=== PATIENT | male | born 1950 | race Caucasian/White ===

== ENCOUNTER → 2017-06-28 | Outpatient (CLI) | payer OTHER, BC | LOC: LAB 11:08 | PROVIDERS: ATTEND Internal Medicine Gastroenterology | DX: K64.0 First degree hemorrhoids (principal) | CPT/HCPCS: 82270 ==

== ENCOUNTER 2024-11-08 09:26 | Observation (INO) ==
--- NOTE | 2024-11-08 09:36 | EKG ---
Test Reason : possible stroke Blood Pressure : */* mmHG Vent. Rate : 79 BPM Atrial Rate : 79 BPM P-R Int : 212 ms QRS Dur : 150 ms QT Int : 390 ms P-R-T Axes : 58 -20 4 degrees QTc Int : 447 ms Sinus rhythm with 1st degree AV block Left bundle branch block Abnormal ECG No previous ECGs available Confirmed by Major Mcintyre MD ([id number]) on 11/08/2024 5:20:31 PM Referred By: Confirmed By: Major Mcintyre MD
--- NOTE | 2024-11-08 09:42 | DR.WEAKNES ---
HPI Time Seen Time Seen by Provider: 11/08/24 09:39 Complaints Chief Complaint Doctors Comments: This evaluate him patient awakened about 8 AM this morning with some slurred speech according to his son he stated that he called his father and he seemed to be slurring his speech so they went over it and they brought him to the ER for further evaluation. Stroke alert protocol was instituted upon the patient's arrival in the ER. Timing Symptom Onset: Known Context Stroke Symptoms: Slurring PMH PMH Past Surgical History: Yes Travel Risk Coronavirus risk:travel/contact w/high risk person: No Has patient experienced Coronavirus symptoms: No ROS Review of Systems Constitutional: Other (slurred speech) Eyes: No Symptoms Reported ENTM: No Symptoms Reported Respiratoy: No Symptoms Reported Cardiovascular: No Symptoms Reported Gastrointestinal/Abdominal: No Symptoms Reported Genitourinary: No Symptoms Reported Neurological: Speech Problem Musculoskeletal: No Symptoms Reported Integumentary: No Symptoms Reported Hematologic/Lymphatic: No Symptoms Reported Endocrine: No Symptoms Reported Psychiatric: No Symptoms Reported PE Vital Signs Vitals: Vital Signs Temperature 97.8 F Pulse Rate 73 Pulse Rate 74 Pulse Rate 81 Pulse Rate 79 Pulse Rate 74 Respiratory Rate 20 Respiratory Rate 27 Respiratory Rate 22 Respiratory Rate 22 Respiratory Rate 18 Blood Pressure 143/84 O2 Sat by Pulse Oximetry 94 O2 Sat by Pulse Oximetry 95 O2 Sat by Pulse Oximetry 94 O2 Sat by Pulse Oximetry 94 O2 Sat by Pulse Oximetry 92 General Limitations: No Limitations General Appearance: In No Apparent Distress Head Head Exam: Normal Inspection, Atraumatic and Normocephalic Eyes Eye exam: Normal Appearance, PERRL and EOMI Eyelids: Normal Inspection: Bilateral Pupils: Regular, Round: Bilateral ENT ENT Exam: Normal Exam Mouth Exam: Normal Inspection Throat Exam: Normal Inspection Neck Neck Exam: Normal Inspection Chest Chest Inspection: Normal Inspection and Symmetric Chest Wall Rise Respiratory Respiratory Exam: Normal Lung Sounds Bilat Respiratory Exam: Bilateral: Clear to Auscultation Cardiovascular Cardiovascular Exam: Regular Rate and Normal Rhythm Abdominal Exam Abdominal Exam: Normal Inspection, Normal Bowel Sounds and Soft Extremities Extremities Exam: Normal Inspection Back Back Exam: Normal Inspection Neurologic Neurological Exam: Alert, Oriented X3 and CN II-XII Intact Patient Oriented To: Person, Place and Time Speech: Fluid Speech Motor Strength - LUE: 5/5 Motor Strength - RUE: 5/5 Motor Strength - LLE: 5/5 Motor Strength - RLE: 5/5 Psychiatric Psychiatric Exam: Normal Affect and Normal Mood Skin Skin Exam: Warm, Dry and Intact MDM Differential Diagnosis Differential Diagnosis: Morales's Palsey, CVA and TIA COURSE Treatment Treatment: This patient did go through the stroke protocol and we had there was a neurologist that evaluated the patient Dr.Santindr Garebr and she stated that this patient has a TIA they did evaluate the CT scan of the brain no acute bleed I did the CTA of head and carotids and there was no blockage she stated that the patient she will be referred to observation need to get an MRI of the brain need to be loaded with Plavix in the ER 300 mg and aspirin 325 and should be evaluated every 4 hours neurologically over the next 23 hours to make sure nothing changes. Patient then can be placed on Plavix 75 mg a day and aspirin 325 a day. I spoke to the patient and the patient family and gave the information and they agree for this observation admission. I subsequently called Dr. Tejada who is on-call for the patient at [phone] and she says she would accept the patient to observation. The patient was cleared to be referred to observation by the case management team. [facility] Labs Reviewed 11/08/24 09:35 11/08/24 09:35 Laboratory: WBC 4.6 X10^3/uL (3.6-10.0) 11/08/24 09:35 RBC 5.09 X10^6/uL (4.7-6.0) 11/08/24 09:35 Hgb 16.6 g/dL (13.5-18.0) 11/08/24 09:35 Hct 48.0 % (42.0-54.0) 11/08/24 09:35 MCV 94.4 fL (80.0-100.0) 11/08/24 09:35 MCH 32.6 pg (27.0-34.0) 11/08/24 09:35 MCHC 34.5 g/dL (33.0-35.0) 11/08/24 09:35 RDW 14.8 % (11.6-16.5) 11/08/24 09:35 Plt Count 174 X10^3/uL (150.0-450.0) 11/08/24 09:35 MPV 8.6 fL (7.4-11.0) 11/08/24 09:35 Neut % (Auto) 64.5 % (42.0-75.0) 11/08/24 09:35 Lymph % (Auto) 23.0 % (21.0-51.0) 11/08/24 09:35 [place] % (Auto) 9.1 % (0.0-13.0) 11/08/24 09:35 Eos % (Auto) 2.3 % (0.9-2.9) 11/08/24 09:35 Baso % (Auto) 1.1 % (0.2-1.0) H 11/08/24 09:35 Neut # (Auto) 3.0 x10^3/uL (2.2-4.8) 11/08/24 09:35 Lymph # (Auto) 1.1 X10^3/uL (1.3-2.9) L 11/08/24 09:35 [place] # (Auto) 0.4 x10^3/uL (0.3-0.8) 11/08/24 09:35 Eos # (Auto) 0.1 x10^3/uL (0.0-0.2) 11/08/24 09:35 Baso # (Auto) 0.1 X10^3/uL (0.0-0.1) 11/08/24 09:35 Absolute Nucleated RBC 0.2 /100WBC 11/08/24 09:35 PT 13.2 SECONDS (11.8-14.3) 11/08/24 09:35 INR Target Range - 11/08/24 09:35 INR 1.02 (0.8-1.3) 11/08/24 09:35 APTT 27.4 SECONDS (22.9-36.5) 11/08/24 09:35 PTT Comment - 11/08/24 09:35 Sodium 140 mmol/L (136-145) 11/08/24 09:35 Corrected Sodium 144 mmol/L (136-145) 11/08/24 09:35 Potassium 3.8 mmol/L (3.5-5.1) 11/08/24 09:35 Chloride 105 mmol/L (98-107) 11/08/24 09:35 Carbon Dioxide 23.7 mmol/L (21-32) 11/08/24 09:35 BUN 20 mg/dL (7-18) H 11/08/24 09:35 Creatinine 1.38 mg/dL (0.70-1.30) H 11/08/24 09:35 Est GFR (MDRD) Af Amer > 60 (>60) 11/08/24 09:35 Est GFR (MDRD) Non-Af 54 (>60) L 11/08/24 09:35 Glucose 261 mg/dL (65-99) H 11/08/24 09:35 Calcium 8.5 mg/dL (8.5-10.1) 11/08/24 09:35 Corrected Calcium 9.1 mg/dL (8.5-10.1) 11/08/24 09:35 Total Bilirubin 0.40 mg/dL (0.2-1.0) 11/08/24 09:35 AST 9 Units/L (15-37) L 11/08/24 09:35 ALT 16 Units/L (12-78) 11/08/24 09:35 Alkaline Phosphatase 93 Units/L (46-116) 11/08/24 09:35 Creatine Kinase 53 Units/L (39-308) 11/08/24 09:35 Troponin I High Sens 12.5 ng/L (4.0-60.0) 11/08/24 09:35 Total Protein 6.1 g/dL (6.4-8.2) L 11/08/24 09:35 Albumin 3.3 g/dL (3.4-5.0) L 11/08/24 09:35 Globulin 2.8 g/dL (2.5-4.5) 11/08/24 09:35 Albumin/Globulin Ratio 1.2 Ratio (1.1-2.1) 11/08/24 09:35 Triglycerides 868 mg/dL (0-150) H 11/08/24 09:35 Cholesterol 196 mg/dL (0-200) 11/08/24 09:35 LDL Cholesterol, Calc -9 mg/dL (0-100) L 11/08/24 09:35 HDL Cholesterol 31 mg/dL (40-60) L 11/08/24 09:35 Cholesterol/HDL Ratio 6.3 (0.0-5.0) H 11/08/24 09:35 Specimen Type Clean catch urine 11/08/24 10:44 Urine Color Pale yellow (YELLOW) 11/08/24 10:44 Urine Appearance Clear (CLEAR) 11/08/24 10:44 Urine pH 6.0 (5.0 - 8.0) 11/08/24 10:44 Ur Specific [place] 1.015 (1.000-1.030) 11/08/24 10:44 Urine Protein Negative (NEGATIVE) 11/08/24 10:44 Urine Glucose (UA) 4+ (NEGATIVE) 11/08/24 10:44 Urine Ketones Negative (NEGATIVE) 11/08/24 10:44 Urine Blood 1+ (NEGATIVE) 11/08/24 10:44 Urine Nitrite Negative (NEGATIVE) 11/08/24 10:44 Urine Bilirubin Negative (NEGATIVE) 11/08/24 10:44 Urine Urobilinogen Normal (NORMAL) 11/08/24 10:44 Ur Leukocyte Esterase Negative (NEGATIVE) 11/08/24 10:44 Urine RBC 0-2 /HPF (0-3) 11/08/24 10:44 Urine WBC 0-2 /HPF (0-5) 11/08/24 10:44 Ur Squamous Epith Cells Rare /HPF (NEGATIVE) 11/08/24 10:44 Urine Bacteria Trace /HPF (NEGATIVE) 11/08/24 10:44 Urine Mucus Rare /HPF (NEGATIVE) 11/08/24 10:44 Ur Culture Indicated? No/not indicated 11/08/24 10:44 Blood Type O POSITIVE 11/08/24 10:15 Antibody Screen Negative 11/08/24 10:15 Opioid Opioid Risk Tool Age (Sebastian box if 16-45): No History of Preadolescent Sexual Abuse: No Total: 0 Total Score Risk Category: Low Risk Copyright: Jovani ZHAO predicting aberrant behaviors Discharge Plan Diagnosis Discharge Problem: Brain TIA, Hyperglycemia Discharge Plan Patient Disposition: 09 ADMITTED INPATIENT Condition: Stable Orders to Discharge Patient Discharge Orders: Transfer (Routine); Ordered 11/08/24 Ordered By: Jonathan Salcedo
[2024-11-08 09:47] LABS: BASOPHILS # (AUTO) 0.1 X10^3/uL (0.0-0.1); BASOPHILS % (AUTO) 1.1 % (0.2-1.0); EOSINOPHILS # (AUTO) 0.1 x10^3/uL (0.0-0.2); EOSINOPHILS % (AUTO) 2.3 % (0.9-2.9); HEMOGLOBIN 16.6 g/dL (13.5-18.0); LYMPHOCYTES # (AUTO) 1.1 X10^3/uL (1.3-2.9); MEAN CORPUSCULAR HEMOGLOBIN 32.6 pg (27.0-34.0); MEAN CORPUSCULAR HGB CONC 34.5 g/dL (33.0-35.0); MEAN CORPUSCULAR VOLUME 94.4 fL (80.0-100.0); MEAN PLATELET VOLUME 8.6 fL (7.4-11.0); MONOCYTES # (AUTO) 0.4 x10^3/uL (0.3-0.8); MONOCYTES % (AUTO) 9.1 % (0.0-13.0); NEUTROPHILS % (AUTO) 64.5 % (42.0-75.0); PLATELET COUNT 174 X10^3/uL (150.0-450.0); RED BLOOD COUNT 5.09 X10^6/uL (4.7-6.0); RED CELL DISTRIBUTION WIDTH 14.8 % (11.6-16.5); WHITE BLOOD COUNT 4.6 X10^3/uL (3.6-10.0)
[2024-11-08 09:51] LABS: INR 1.02 (0.8-1.3)
[2024-11-08] MEDS ORDERED: OMNIPAQUE 350 mg/mL 100 mL BTL 100 ML ONE (09:54)
[2024-11-08 09:58] LABS: CARBON DIOXIDE 23.7 mmol/L (21-32)
--- NOTE | 2024-11-08 10:09 | CT ---
EXAM: CT HEAD WITH CONTRAST HISTORY: SLURRED SPEECH; . COMPARISON: None. TECHNIQUE: Axial CT images were obtained through the brain after the intravenous administration of 75cc Isovue 3 70. Informed written consent was obtained from the patient prior to contrast administration. All CT scans at this facility use dose modulation, iterative reconstruction, and/or weight based dosi ng when appropriate to reduce radiation dose to as low as reasonably achievable. FINDINGS: BRAIN: There is mild diffuse atrophy with proportionate enlargement of the cerebral sulci and ventric ular system. Decreased attenuation in the periventricular white matter is compatible with but not s pecific for chronic small vessel ischemic changes. No evidence of acute infarct intra or extraaxial hemorrhage mass effect or hydrocephalus. No abnormal enhancement identified after contrast adminis tration. SKULL: Normal ADDITIONAL FINDINGS: Mucosal thickening noted within the sphenoid and left maxillary sinuses. Parana nina sinuses, mastoids, and orbits appear otherwise within normal limits. IMPRESSION: No evidence of acute intracranial process THIS IS AN ELECTRONICALLY VERIFIED FINAL REPORT 11/08/2024 10:05 AM - Electronically signed by Ney Craft MD
[2024-11-08] MEDS ORDERED: PLAVIX ONE (10:38)
[2024-11-08] MEDS ORDERED: ASPIRIN 81 MG CHEWTAB ONE (10:38)
[2024-11-08 10:39] LABS: ALANINE AMINOTRANSFERASE 16 Units/L (12-78); ALBUMIN 3.3 g/dL (3.4-5.0); ALKALINE PHOSPHATASE 93 Units/L (46-116); ASPARTATE AMINO TRANSFERASE 9 Units/L (15-37); BLOOD UREA NITROGEN 20 mg/dL (7-18); CALCIUM 8.5 mg/dL (8.5-10.1); CHLORIDE 105 mmol/L (98-107); CHOL/HDL RATIO 6.3 (0.0-5.0); CHOLESTEROL 196 mg/dL (0-200); COR CA(FOR HYPOALB) 9.1 mg/dL (8.5-10.1); COR NA(FOR HYPERGLY) 144 mmol/L (136-145); CREATINE KINASE 53 Units/L (39-308); CREATININE 1.38 mg/dL (0.70-1.30); GLUCOSE 261 mg/dL (65-99); HDL CHOLESTEROL 31 mg/dL (40-60); POTASSIUM 3.8 mmol/L (3.5-5.1); SODIUM 140 mmol/L (136-145); TOTAL PROTEIN 6.1 g/dL (6.4-8.2); TRIGLYCERIDES 868 mg/dL (0-150); eGFR NON BLACK RACES 54 (>60)
[2024-11-08] MEDS ORDERED: ASPIRIN ONE (10:40)
[2024-11-08] MEDS: PLAVIX PO ONE (10:41)
[2024-11-08] MEDS: ASPIRIN PO ONE (10:41)
[2024-11-08 11:03] LABS: BILIRUBIN,URINE NEGATIVE (NEGATIVE); BLOOD/HEMOGLOBIN,URINE 1+ (NEGATIVE); GLUCOSE, URINE 4+ (NEGATIVE); KETONES,URINE NEGATIVE (NEGATIVE); LEUKOCYTE ESTERASE ,URINE NEGATIVE (NEGATIVE); NITRITES,URINE NEGATIVE (NEGATIVE); PROTEIN,URINE NEGATIVE (NEGATIVE); UROBILINOGEN,URINE NORMAL (NORMAL)
--- NOTE | 2024-11-08 11:04 | CT ---
EXAM: CT ARTERIOGRAM HEAD WITH CONTRAST AND 3D REFORMATIONS HISTORY: SLURRED SPEECH; . COMPARISON: CT from same date and MRI dated 10/02/2024. TECHNIQUE: Axial CTA images were obtained from the skull base through the vertex of the brain after the intraven ous administration of contrast. Coronal and sagittal reformatted images were included. 3D reconstruct ions were performed with concurrent physician supervision at a separate independent workstation and M IP images were also performed. When appropriate, NASCET criteria was used for the estimation of sten osis. All CT scans at this facility use dose modulation, iterative reconstruction, and/or weight based dosi ng when appropriate to reduce radiation dose to as low as reasonably achievable. FINDINGS: CADDO OF ABBOTT: Anterior, middle, and posterior cerebral arteries are patent without evidence of st enosis or occlusion. Somewhat diminutive right anterior cerebral artery A1 segment with distal porti on predominantly supplied by the anterior communicating artery, likely congenital. Normal basilar ar janna. No evidence of intracranial aneurysm. Dural venous sinuses are normally opacified. BRAIN: No enhancing intracranial abnormalities. No hydrocephalus. BONES: Moderate sphenoid and maxillary sinus mucosal disease. Mastoid air cells are well-aerated. IMPRESSION: CTA of the brain is within normal limits. No evidence of large vessel occlusion or flow limiting abbey nosis. THIS IS AN ELECTRONICALLY VERIFIED FINAL REPORT 11/08/2024 11:01 AM - Electronically signed by Ney Monterroso MD
[2024-11-08 11:05] LABS: APPEARANCE,URINE CLEAR (CLEAR); COLOR,URINE PALE YELLOW (YELLOW)
--- NOTE | 2024-11-08 11:06 | CT ---
EXAM: CT ARTERIOGRAM NECK WITH CONTRAST AND 3D REFORMATIONS HISTORY: SLURRED SPEECH; . COMPARISON: None. TECHNIQUE: Axial CTA images were obtained from the aortic arch through the skull base after uneventful administr ation of contrast. Coronal, sagittal as well as 3D reformations were post processed on an independent workstation. When appropriate, NASCET criteria was used for the estimation of stenosis. All CT scans at this facility use dose modulation, iterative reconstruction, and/or weight based dosi ng when appropriate to reduce radiation dose to as low as reasonably achievable. FINDINGS: Left carotid: No evidence of focal stenosis or occlusion. Right carotid: No evidence of focal stenosis or occlusion. Vertebral arteries: No evidence of focal stenosis or occlusion. Aortic arch: Anatomic variant common origin of the right brachiocephalic and left common carotid nabila emilia. Visualized aortic arch is normal caliber. BONES: No acute osseous findings. Moderate cervical spondylosis with reversal of lordosis centered a t C4-C5. ADDITIONAL FINDINGS: No acute findings in the soft tissues of the neck. Respiratory motion in the gurdeep ng apices. IMPRESSION: No evidence of focal stenosis or occlusion in the carotid or vertebral arteries. THIS IS AN ELECTRONICALLY VERIFIED FINAL REPORT 11/08/2024 11:03 AM - Electronically signed by Ney Monterroso MD
[2024-11-08 11:11] LABS: BACTERIA,URINE TRACE /HPF (NEGATIVE); RBC,URINE 0-2 /HPF (0-3); SQUAMOUS EPITHELIAL CELL,UR RARE /HPF (NEGATIVE)
[2024-11-08] MEDS ORDERED: NEURONTIN CAP 300 MG PO PRN (11:20)
[2024-11-08 12:17] VITALS: BMI 30.9
--- NOTE | 2024-11-08 12:23 | MRI ---
EXAM: BRAIN W/O CON HISTORY: slurred speech; COMPARISON: No relevant prior studies are available for comparison at the time of interpretation. TECHNIQUE: Multisequential, multiplanar MRI of the brain was performed Without intravenous contrast. FINDINGS: No restricted diffusion or susceptibility artifact to suggest acute infarct or hemorrhage. No mass, s ignificant mass effect, or herniation. Cortical atrophy and areas of long TR signal are seen within the supratentorial and periventricular w bruce matter, consistent with moderate chronic microvascular ischemic disease. No hydrocephalus or extra-axial fluid collections. No acute abnormality to the corpus callosum, pituitary, or posterior fossa as visualized. Basal cist erns are patent. Flow voids are present. Globes are intact. Extraocular muscles and optic nerves are symmetric and unremarkable as visualized . Intraconal and extraconal structures are within normal limits. Retrobulbar fat is within normal l imits. Left sphenoid and maxillary mucosal thickening Visualized extracranial structures are grossly unremarkable. IMPRESSION: 1. No acute intracranial abnormality. THIS IS AN ELECTRONICALLY VERIFIED FINAL REPORT 11/08/2024 12:19 PM - Electronically signed by Deng Roche MD
[2024-11-08] MEDS ORDERED: NovoLIN R (or HumuLIN R) SUBCUT PRN (12:51)
--- NOTE | 2024-11-08 13:18 | RAD ---
EXAM: CHEST, 1 VIEW HISTORY: SLURRED SPEECH; COMPARISON: 09/01/2021 FINDINGS: The lungs are clear. No pneumothorax or effusion. Heart size is magnified because of technique. The bones are unremarkable. EKG leads are noted. IMPRESSION: 1. No significant abnormality THIS IS AN ELECTRONICALLY VERIFIED FINAL REPORT 11/08/2024 1:14 PM - Electronically signed by Niles Baires MD
[2024-11-08] MEDS ORDERED: ULTRAM PO PRN (17:48)
[2024-11-08] MEDS: BACTRIM DS TAB PO SCH (20:43)
[2024-11-08] MEDS: ENTRESTO 49/51 MG TABLET PO SCH (20:43)
[2024-11-08] MEDS: RESTORIL CAP 15 MG PO PRN (20:44)
[2024-11-09 05:31] LABS: BASOPHILS % (AUTO) 0.7 % (0.2-1.0); EOSINOPHILS # (AUTO) 0.1 x10^3/uL (0.0-0.2); EOSINOPHILS % (AUTO) 2.8 % (0.9-2.9); HEMATOCRIT 43.7 % (42.0-54.0); HEMOGLOBIN 15.4 g/dL (13.5-18.0); LYMPHOCYTES # (AUTO) 0.6 X10^3/uL (1.3-2.9); MEAN CORPUSCULAR HEMOGLOBIN 32.9 pg (27.0-34.0); MEAN CORPUSCULAR HGB CONC 35.3 g/dL (33.0-35.0); MEAN CORPUSCULAR VOLUME 93.2 fL (80.0-100.0); MEAN PLATELET VOLUME 8.2 fL (7.4-11.0); MONOCYTES # (AUTO) 0.3 x10^3/uL (0.3-0.8); MONOCYTES % (AUTO) 9.5 % (0.0-13.0); NEUTROPHILS # (AUTO) 2.5 x10^3/uL (2.2-4.8); PLATELET COUNT 141 X10^3/uL (150.0-450.0); RED BLOOD COUNT 4.69 X10^6/uL (4.7-6.0); RED CELL DISTRIBUTION WIDTH 14.5 % (11.6-16.5); WHITE BLOOD COUNT 3.6 X10^3/uL (3.6-10.0)
[2024-11-09 06:06] LABS: CHLORIDE 105 mmol/L (98-107); POTASSIUM 4.2 mmol/L (3.5-5.1); SODIUM 140 mmol/L (136-145)
[2024-11-09 06:07] LABS: ALANINE AMINOTRANSFERASE 15 Units/L (12-78); ALBUMIN 3.3 g/dL (3.4-5.0); ALKALINE PHOSPHATASE 89 Units/L (46-116); BLOOD UREA NITROGEN 17 mg/dL (7-18); CALCIUM 8.7 mg/dL (8.5-10.1); COR CA(FOR HYPOALB) 9.3 mg/dL (8.5-10.1); COR NA(FOR HYPERGLY) 141 mmol/L (136-145); CREATININE 1.04 mg/dL (0.70-1.30); GLUCOSE 125 mg/dL (65-99); TOTAL PROTEIN 6.2 g/dL (6.4-8.2); eGFR NON BLACK RACES > 60 (>60)
[2024-11-09 06:08] LABS: ASPARTATE AMINO TRANSFERASE 17 Units/L (15-37)
[2024-11-09 07:50] VITALS: BP 133/78; PULSE 85; RESP 20; TEMP 98.6; O2SAT 92
[2024-11-09] MEDS: ASPIRIN PO SCH (08:25)
[2024-11-09] MEDS: FARXIGA PO SCH (08:25)
[2024-11-09] MEDS: PLAVIX PO SCH (08:26)
[2024-11-09] MEDS: ALDACTONE TAB 25 MG PO SCH (08:26)
[2024-11-09] MEDS: TOPROL XL PO SCH (08:26)
[2024-11-09] MEDS: NORVASC TAB 10 MG PO SCH (08:26)
--- NOTE | 2024-11-09 09:40 | DR.SSS ---
SHORT STAY SUMMARY Admission Date Date of Admission: 11/08/24 Discharge Date Discharge Date: 11/09/24 Admission Diagnoses Admission Diagnoses: TIA Discharge Diagnoses Discharge Diagnoses: TIA, diabetes, hypertension, hyperlipidemia. Chief Complaint Chief Complaint: Slurred speech History of Present Illness History of Present Illness: Patient reports he woke up in the middle of the night to go to the bathroom. After that he had the "best night of sleep in a long time." Son-in-law called and woke him up. The son-in-law was concerned that he was having difficulty thinking and speaking. He was transported to the ER where they evaluated him under code stroke. Noncontrast CT of the brain, CTA of the head and neck, and MRI were all obtained with neurology consultation. He was loaded with Plavix and aspirin was increased to 325. He has been on statins in the past with achiness so therefore not started in the ER. Neurology advised to be kept for 23 hours under observation. Past Medical History Past Medical History: Arthritis, Diabetes and Hypertension Past Surgical History Surgical History: Ortho Surgery Allergies Allergies Allergy/AdvReac Type Severity Reaction Status Date / Time Penicillins Allergy Mild Verified 07/18/23 13:43 Medications Home Medications: Penicillins Allergy (Mild, Verified 07/18/23 13:43) CONTINUE taking the following medications gabapentin 300 mg capsule 300 mg PO TID PRN pain 11/08/24 [History] gentamicin 0.1 % topical ointment 0.1 applic topical BID 11/08/24 [History] metoprolol succinate 25 mg tablet,extended release 24 hr 25 mg PO QDAY 11/08/24 [History] sacubitril 49 mg-valsartan 51 mg tablet (Entresto) 1 tab PO BID 11/08/24 [History] spironolactone 25 mg tablet 12.5 mg PO QDAY 11/08/24 [History] sulfamethoxazole 800 mg-trimethoprim 160 mg tablet (Bactrim DS) 1 tab PO BID 11/08/24 [History] tizanidine 2 mg tablet 2 mg PO QPM 11/08/24 [History] Family History Family Medical History: Diabetes Mellitus, PA, Heart Failure and Hypertension Social History Does patient currently use any type of tobacco product: No Have you used tobacco products in the last 12 months: No Type of Tobacco Use: None Does any household member use tobacco: No Alcohol Use: None Drug Use: None Physical Exam Vital Signs: Last Vital Signs Temp 98.6 F 11/09/24 07:50 Pulse 85 11/09/24 07:50 Resp 20 11/09/24 07:50 BP 133/78 11/09/24 07:50 Pulse Ox 92 L 11/09/24 07:50 O2 Del Method Room Air 11/09/24 07:50 Labs Labs: Laboratory Last Values WBC 3.6 X10^3/uL (3.6-10.0) 11/09/24 04:46 RBC 4.69 X10^6/uL (4.7-6.0) L 11/09/24 04:46 Hgb 15.4 g/dL (13.5-18.0) 11/09/24 04:46 Hct 43.7 % (42.0-54.0) 11/09/24 04:46 MCV 93.2 fL (80.0-100.0) 11/09/24 04:46 MCH 32.9 pg (27.0-34.0) 11/09/24 04:46 MCHC 35.3 g/dL (33.0-35.0) H 11/09/24 04:46 RDW 14.5 % (11.6-16.5) 11/09/24 04:46 Plt Count 141 X10^3/uL (150.0-450.0) L 11/09/24 04:46 MPV 8.2 fL (7.4-11.0) 11/09/24 04:46 Neut % (Auto) 69.0 % (42.0-75.0) 11/09/24 04:46 Lymph % (Auto) 18.0 % (21.0-51.0) L 11/09/24 04:46 [place] % (Auto) 9.5 % (0.0-13.0) 11/09/24 04:46 Eos % (Auto) 2.8 % (0.9-2.9) 11/09/24 04:46 Baso % (Auto) 0.7 % (0.2-1.0) 11/09/24 04:46 Neut # (Auto) 2.5 x10^3/uL (2.2-4.8) 11/09/24 04:46 Lymph # (Auto) 0.6 X10^3/uL (1.3-2.9) L 11/09/24 04:46 [place] # (Auto) 0.3 x10^3/uL (0.3-0.8) 11/09/24 04:46 Eos # (Auto) 0.1 x10^3/uL (0.0-0.2) 11/09/24 04:46 Baso # (Auto) 0.0 X10^3/uL (0.0-0.1) 11/09/24 04:46 Absolute Nucleated RBC 0.1 /100WBC 11/09/24 04:46 PT 13.2 SECONDS (11.8-14.3) 11/08/24 09:35 INR Target Range - 11/08/24 09:35 INR 1.02 (0.8-1.3) 11/08/24 09:35 APTT 27.4 SECONDS (22.9-36.5) 11/08/24 09:35 PTT Comment - 11/08/24 09:35 Sodium 140 mmol/L (136-145) 11/09/24 04:46 Corrected Sodium 141 mmol/L (136-145) 11/09/24 04:46 Potassium 4.2 mmol/L (3.5-5.1) 11/09/24 04:46 Chloride 105 mmol/L (98-107) 11/09/24 04:46 Carbon Dioxide 26.0 mmol/L (21-32) 11/09/24 04:46 BUN 17 mg/dL (7-18) 11/09/24 04:46 Creatinine 1.04 mg/dL (0.70-1.30) 11/09/24 04:46 Est GFR (MDRD) Af Amer > 60 (>60) 11/09/24 04:46 Est GFR (MDRD) Non-Af > 60 (>60) 11/09/24 04:46 Glucose 125 mg/dL (65-99) H 11/09/24 04:46 POC Glucose (mg/dL) 127 mg/dL (65-99) H 11/09/24 05:28 Calcium 8.7 mg/dL (8.5-10.1) 11/09/24 04:46 Corrected Calcium 9.3 mg/dL (8.5-10.1) 11/09/24 04:46 Total Bilirubin 0.40 mg/dL (0.2-1.0) 11/09/24 04:46 AST 17 Units/L (15-37) 11/09/24 04:46 ALT 15 Units/L (12-78) 11/09/24 04:46 Alkaline Phosphatase 89 Units/L (46-116) 11/09/24 04:46 Creatine Kinase 53 Units/L (39-308) 11/08/24 09:35 Troponin I High Sens 12.5 ng/L (4.0-60.0) 11/08/24 09:35 Total Protein 6.2 g/dL (6.4-8.2) L 11/09/24 04:46 Albumin 3.3 g/dL (3.4-5.0) L 11/09/24 04:46 Globulin 2.9 g/dL (2.5-4.5) 11/09/24 04:46 Albumin/Globulin Ratio 1.1 Ratio (1.1-2.1) 11/09/24 04:46 Triglycerides 868 mg/dL (0-150) H 11/08/24 09:35 Cholesterol 196 mg/dL (0-200) 11/08/24 09:35 LDL Cholesterol, Calc -9 mg/dL (0-100) L 11/08/24 09:35 HDL Cholesterol 31 mg/dL (40-60) L 11/08/24 09:35 Cholesterol/HDL Ratio 6.3 (0.0-5.0) H 11/08/24 09:35 Specimen Type Clean catch urine 11/08/24 10:44 Urine Color Pale yellow (YELLOW) 11/08/24 10:44 Urine Appearance Clear (CLEAR) 11/08/24 10:44 Urine pH 6.0 (5.0 - 8.0) 11/08/24 10:44 Ur Specific [place] 1.015 (1.000-1.030) 11/08/24 10:44 Urine Protein Negative (NEGATIVE) 11/08/24 10:44 Urine Glucose (UA) 4+ (NEGATIVE) 11/08/24 10:44 Urine Ketones Negative (NEGATIVE) 11/08/24 10:44 Urine Blood 1+ (NEGATIVE) 11/08/24 10:44 Urine Nitrite Negative (NEGATIVE) 11/08/24 10:44 Urine Bilirubin Negative (NEGATIVE) 11/08/24 10:44 Urine Urobilinogen Normal (NORMAL) 11/08/24 10:44 Ur Leukocyte Esterase Negative (NEGATIVE) 11/08/24 10:44 Urine RBC 0-2 /HPF (0-3) 11/08/24 10:44 Urine WBC 0-2 /HPF (0-5) 11/08/24 10:44 Ur Squamous Epith Cells Rare /HPF (NEGATIVE) 11/08/24 10:44 Urine Bacteria Trace /HPF (NEGATIVE) 11/08/24 10:44 Urine Mucus Rare /HPF (NEGATIVE) 11/08/24 10:44 Ur Culture Indicated? No/not indicated 11/08/24 10:44 Blood Type O POSITIVE 11/08/24 10:15 Antibody Screen Negative 11/08/24 10:15 Hospital Course Hospital Course: ROS: 12 point ROS negative at the time of my exam. PE: Well-developed, well-nourished, obese male in no acute distress. Head NCAT, EOMI, trachea midline, hearing intact to conversation. Heart regular rate and rhythm. Lungs are clear bilaterally. Belly is soft, nontender, nondistended with bowel sounds present. Able to move all extremities equally well with 5/5 strength throughout. Neurological testing is grossly normal with CN II through XII grossly intact. Mood and affect are appropriate. No edema of his extremities. He has done well overnight and his daughters at bedside report he seems to be at baseline and has done well since yesterday. He is ready to discharge home and his family agrees. He has going to be discharged home on Plavix for the next month and full dose aspirin. He will follow-up with his PCP. Also attempting to send him home on Crestor 20 and advised he could break it in half and take it every 2 to 3 days if needed. Discharge Medications Discharge Medications: Home Medication List gabapentin 300 mg capsule 300 mg PO TID PRN pain 11/08/24 [History] gentamicin 0.1 % topical ointment 0.1 applic topical BID 11/08/24 [History] metoprolol succinate 25 mg tablet,extended release 24 hr 25 mg PO QDAY 11/08/24 [History] sacubitril 49 mg-valsartan 51 mg tablet (Entresto) 1 tab PO BID 11/08/24 [History] spironolactone 25 mg tablet 12.5 mg PO QDAY 11/08/24 [History] sulfamethoxazole 800 mg-trimethoprim 160 mg tablet (Bactrim DS) 1 tab PO BID 11/08/24 [History] tizanidine 2 mg tablet 2 mg PO QPM 11/08/24 [History] Prescriptions: Discharge Disposition Discharge Disposition: At baseline. Improved. Stable. Discharge Plan Discharge Plan Patient Disposition: HOME, SELF-CARE Condition: Stable Health Concerns: Post Hospitalization: new medications and changes needed to prevent readmission or further decline. Pt educated and given instructions on all concerns. Plan of Treatment: Continue with present treatment and follow up plan. Pt is to keep follow up appointment as instructed and take medications as ordered. Prescription drug monitoring program results: PDMP reviewed and no concerns i dentified Prescriptions: New aspirin 325 mg Tablet 325 mg PO DAILY 30 Days Qty: 30 0RF clopidogrel 75 mg Tablet 75 mg PO DAILY 30 Days Qty: 30 0RF rosuvastatin 20 mg tablet 20 mg PO QDAY Qty: 30 0RF Continued Jardiance 10 mg tablet 10 mg PO QAM amlodipine 10 mg tablet 10 mg PO QDAY Ozempic 1 mg/dose (4 mg/3 mL) pen injector 1 mg subcut QWEEK tizanidine 2 mg tablet 2 mg PO QPM sulfamethoxazole-trimethoprim [Bactrim DS] 800-160 mg tablet 1 tab PO BID spironolactone 25 mg tablet 12.5 mg PO QDAY gabapentin 300 mg capsule 300 mg PO TID PRN (Reason: pain) metoprolol succinate 25 mg tablet extended release 24 hr 25 mg PO QDAY gentamicin 0.1 % ointment 0.1 applic TOPICAL BID Entresto 49-51 mg tablet 1 tab PO BID Discontinued aspirin 81 mg tablet,delayed release (DR/EC) 81 mg PO QDAY Orders to Discharge Patient Discharge Orders: Discharge (Routine); Ordered 11/09/24 Ordered By: Randall Hathaway Follow ups/Referrals Follow ups/Referrals: Marcus Ramirez [Primary Care Provider] - 1 WEEK Instructions Instructions: Transient Ischemic Attack Stand Alone Forms: Excuse From Work or School, Find Help Web Site, Post Hospital Follow Up Care
== END 2024-11-09 09:45 | disposition home or self-care (01) ==
LOC: ER 09:26 → MED/SURG 09:26
PROVIDERS: ADMIT Internal Medicine; ATTEND Internal Medicine
DX: R94.31 Abnormal electrocardiogram [ECG] [EKG]; M19.90 Unspecified osteoarthritis, unspecified site; E11.65 Type 2 diabetes mellitus with hyperglycemia; E66.9 Obesity, unspecified; Z68.30 Body mass index [BMI] 30.0-30.9, adult; G45.9 Transient cerebral ischemic attack, unspecified; I10 Essential (primary) hypertension; R79.89 Other specified abnormal findings of blood chemistry